=== PATIENT | female | born 1995 | race Caucasian/White ===

== ENCOUNTER 2020-05-03 08:04 | Emergency (ER) | payer SELFPAY ==
[~2020-05-03] VITALS: Ht 154.9 cm; Wt 66.7 kg
[2020-05-03 08:24] VITALS: Ht 154.9 cm; Wt 66.7 kg
[2020-05-03 09:25] LABS: BASOPHIL % 1.1 % (0-2); PLATELET COUNT 298 x10^3mcL (130-400); RED CELL DISTRIBUTION WIDTH 12.4 % (11.5-14.5)
[2020-05-03 09:48] LABS: ALBUMIN 3.9 g/dL (3.4-5.0); ALKALINE PHOSPHATASE 47 U/L (46-116); ALT/SGPT 58 U/L (14-59); AST/SGOT 26 U/L (15-37); BILIRUBIN TOTAL 0.5 mg/dL (0.20-1.00); CARBON DIOXIDE 25.2 mmol/L (21-32); CHLORIDE SERUM 101 mmol/L (98-107); CREATININE SERUM 0.8 mg/dL (0.6-1.0); GFR1 > 60 mL/min; GLUCOSE SERUM 74 mg/dL (74-106); LIPASE 156 IU/L (73-393); POTASSIUM SERUM 4.3 mmol/L (3.5-5.1); SODIUM SERUM 137 mmol/L (136-145); TOTAL PROTEIN, SERUM 7.4 g/dL (6.4-8.2)
[2020-05-03 09:51] LABS: UA SPECIFIC GRAVITY >=1.030 (1.005-1.035); microscopic required? YES; urine erythrocyte 1+ (NEGATIVE)
[2020-05-03 09:54] LABS: CALCIUM 9.1 mg/dL (8.5-10.1)
[2020-05-03 12:00] VITALS: BP 100/62
== END 2020-05-03 12:00 | disposition home or self-care (01) ==
LOC: ED 08:04
PROVIDERS: Emergency Medicine
DX: O21.0 Mild hyperemesis gravidarum (principal); Z3A.01 Less than 8 weeks gestation of pregnancy
CPT/HCPCS: J2765; J3490; J7030; Q0092

== ENCOUNTER 2020-05-06 19:30 | Emergency (ER) | payer SELFPAY ==
[~2020-05-06] VITALS: Ht 154.9 cm; Wt 68.0 kg
[2020-05-06 19:40] VITALS: Ht 154.9 cm; Wt 68.0 kg
[2020-05-06 20:56] LABS: BASOPHIL % 1.3 % (0-2); PLATELET COUNT 262 x10^3mcL (130-400); RED CELL DISTRIBUTION WIDTH 12.3 % (11.5-14.5)
[2020-05-06 20:58] LABS: CALCIUM 7.8 mg/dL (8.5-10.1); CARBON DIOXIDE 25.8 mmol/L (21-32); CHLORIDE SERUM 104 mmol/L (98-107); CREATININE SERUM 0.7 mg/dL (0.6-1.0); GFR1 > 60 mL/min; GLUCOSE SERUM 101 mg/dL (74-106); POTASSIUM SERUM 3.8 mmol/L (3.5-5.1); SODIUM SERUM 137 mmol/L (136-145)
[2020-05-06 21:02] LABS: ALKALINE PHOSPHATASE 47 U/L (46-116); ALT/SGPT 140 U/L (14-59); AST/SGOT 63 U/L (15-37); BILIRUBIN TOTAL 0.3 mg/dL (0.20-1.00); LIPASE 283 IU/L (73-393); TOTAL PROTEIN, SERUM 6.9 g/dL (6.4-8.2)
[2020-05-06 21:03] LABS: ALBUMIN 3.2 g/dL (3.4-5.0)
[2020-05-06 22:14] VITALS: BP 103/60
== END 2020-05-06 22:14 | disposition home or self-care (01) ==
LOC: ED 19:30
PROVIDERS: Emergency Medicine
DX: O21.1 Hyperemesis gravidarum with metabolic disturbance (principal); Z3A.01 Less than 8 weeks gestation of pregnancy
CPT/HCPCS: J2405; J7030

== ENCOUNTER 2020-05-16 16:17 | Emergency (ER) | payer MEDICAID ==
[~2020-05-16] VITALS: Ht 157.5 cm; Wt 66.2 kg
[2020-05-16 16:26] VITALS: Ht 157.5 cm; Wt 66.2 kg
[2020-05-16 18:12] LABS: BASOPHIL % 0.6 % (0-2); PLATELET COUNT 315 x10^3mcL (130-400); RED CELL DISTRIBUTION WIDTH 12.3 % (11.5-14.5)
[2020-05-16 18:47] LABS: CALCIUM 9.7 mg/dL (8.5-10.1); CARBON DIOXIDE 24.6 mmol/L (21-32); CHLORIDE SERUM 100 mmol/L (98-107); CREATININE SERUM 0.7 mg/dL (0.6-1.0); GFR1 > 60 mL/min; GLUCOSE SERUM 77 mg/dL (74-106); POTASSIUM SERUM 4.4 mmol/L (3.5-5.1); SODIUM SERUM 135 mmol/L (136-145)
[2020-05-16 18:52] LABS: ALKALINE PHOSPHATASE 55 U/L (46-116); ALT/SGPT 94 U/L (14-59); AST/SGOT 22 U/L (15-37); BILIRUBIN TOTAL 0.27 mg/dL (0.20-1.00); MAGNESIUM 2.1 mg/dL (1.8-2.4)
[2020-05-16 18:53] LABS: TOTAL PROTEIN, SERUM 8.5 g/dL (6.4-8.2)
[2020-05-16 20:42] LABS: UA SPECIFIC GRAVITY >=1.030 (1.005-1.035); microscopic required? YES; urine erythrocyte 1+ (NEGATIVE)
[2020-05-16 22:42] VITALS: BP 100/62
== END 2020-05-16 22:42 | disposition home or self-care (01) ==
LOC: EDBD 16:17 → ED 16:17
PROVIDERS: Specialist
DX: O21.0 Mild hyperemesis gravidarum (principal); O23.41 Unspecified infection of urinary tract in pregnancy, first trimester; K80.50 Calculus of bile duct without cholangitis or cholecystitis without obstruction; K21.9 Gastro-esophageal reflux disease without esophagitis; Z3A.08 8 weeks gestation of pregnancy
CPT/HCPCS: J2765; Q0092

== ENCOUNTER 2020-07-20 03:32 | Emergency (ER) | payer MEDICAID ==
[~2020-07-20] VITALS: Ht 167.6 cm; Wt 77.1 kg
[2020-07-20 03:46] VITALS: Ht 167.6 cm; Wt 77.1 kg
[2020-07-20 04:26] LABS: CALCIUM 8.5 mg/dL (8.5-10.1); CHLORIDE SERUM 103 mmol/L (98-107); CREATININE SERUM 0.6 mg/dL (0.6-1.0); GFR1 > 60 mL/min; GLUCOSE SERUM 103 mg/dL (74-106); PLATELET COUNT 270 x10^3mcL (130-400); POTASSIUM SERUM 3.2 mmol/L (3.5-5.1); RED CELL DISTRIBUTION WIDTH 12.1 % (11.5-14.5); SODIUM SERUM 135 mmol/L (136-145)
[2020-07-20 04:33] LABS: ALKALINE PHOSPHATASE 36 U/L (46-116); ALT/SGPT 29 U/L (14-59); AST/SGOT 18 U/L (15-37); BILIRUBIN TOTAL 0.1 mg/dL (0.20-1.00); CHOLESTEROL 175 mg/dL (<200); CHOLESTEROL/HDL RATIO 4.4; HDL CHOLESTEROL 40 mg/dL (40-60); LIPASE 164 IU/L (73-393); TOTAL PROTEIN, SERUM 6.6 g/dL (6.4-8.2); TRIGLYCERIDES 112 mg/dL (<150)
[2020-07-20 04:35] LABS: ALBUMIN 2.9 g/dL (3.4-5.0)
[2020-07-20 04:37] LABS: T3 TOTAL 2.17 ng/mL
[2020-07-20 04:45] LABS: FREE T4 1.04 ng/dL (0.76-1.46); FREE THYROXINE INDEX 2.7 ug/dL (1.4-4.5); T4(THYROXINE) 11.9 ug/dL (4.7-13.3)
[2020-07-20 05:28] LABS: microscopic required? YES; urine erythrocyte NEGATIVE (NEGATIVE)
[2020-07-20 05:32] VITALS: BP 94/61
== END 2020-07-20 06:00 | disposition home or self-care (01) ==
LOC: ED 03:32
PROVIDERS: Specialist
DX: O99.611 Diseases of the digestive system complicating pregnancy, first trimester (principal); K80.50 Calculus of bile duct without cholangitis or cholecystitis without obstruction; O23.41 Unspecified infection of urinary tract in pregnancy, first trimester; Z3A.12 12 weeks gestation of pregnancy
CPT/HCPCS: 83880; 84439; J0690; J2405; J7030; Q0092

== ENCOUNTER 2020-08-08 00:48 | Emergency (ER) | payer MEDICAID ==
[~2020-08-08] VITALS: Ht 160 cm; Wt 68.0 kg
[2020-08-08 00:56] VITALS: Ht 160 cm; Wt 68.0 kg
[2020-08-08 03:37] VITALS: BP 108/56
== END 2020-08-08 03:37 | disposition home or self-care (01) ==
LOC: ED 00:48
DX: O26.892 Other specified pregnancy related conditions, second trimester (principal); R07.89 Other chest pain; R12 Heartburn; Z3A.20 20 weeks gestation of pregnancy; Z87.19 Personal history of other diseases of the digestive system

== ENCOUNTER 2021-01-10 18:18 | Emergency (ER) | payer MEDICAID ==
[~2021-01-10] VITALS: Ht 160 cm; Wt 73.5 kg
[2021-01-10 18:24] VITALS: Ht 160 cm; Wt 73.5 kg
[2021-01-10 19:08] LABS: BASOPHIL % 1.3 % (0.2-1.3); PLATELET COUNT 360 x10^3mcL (179-408); RED CELL DISTRIBUTION WIDTH 13.7 % (12.3-17.7)
[2021-01-10 19:21] LABS: CALCIUM 8.8 mg/dL (8.5-10.1); CARBON DIOXIDE 28.4 mmol/L (21-32); CHLORIDE SERUM 104 mmol/L (98-107); CREATININE SERUM 0.7 mg/dL (0.6-1.0); GFR1 > 60 mL/min; GLUCOSE SERUM 104 mg/dL (74-106); POTASSIUM SERUM 4.4 mmol/L (3.5-5.1); SODIUM SERUM 141 mmol/L (136-145)
[2021-01-10 19:27] LABS: ALBUMIN 3.1 g/dL (3.4-5.0); ALKALINE PHOSPHATASE 60 U/L (46-116); ALT/SGPT 26 U/L (14-59); AST/SGOT 13 U/L (15-37); BILIRUBIN TOTAL 0.1 mg/dL (0.20-1.00); LIPASE 216 IU/L (73-393); TOTAL PROTEIN, SERUM 6.9 g/dL (6.4-8.2)
[2021-01-10] MEDS ORDERED: ACID REDUCER20 MG PO (20:09)
[2021-01-10 20:18] VITALS: BP 115/66
== END 2021-01-10 20:18 | disposition home or self-care (01) ==
LOC: ED 18:18
PROVIDERS: Emergency Medicine
DX: O99.63 Diseases of the digestive system complicating the puerperium (principal); K92.89 Other specified diseases of the digestive system; K21.9 Gastro-esophageal reflux disease without esophagitis; K80.80 Other cholelithiasis without obstruction